=== PATIENT | male | born 1995 | race Caucasian/White ===

== ENCOUNTER 2020-02-23 18:14 | Day surgery (SDC) | payer BC ==
[~2020-02-23 18:14] MED LIST: Dexamethasone 20 MG/5 ML VIAL ONE; Iopamidol-370 76% 500 ML 1 ML ONE; Lidocaine 1% PF 5 ML VIAL ONE; Ondansetron PF 4 MG/2 ML Vial ONE; PROPOFOL 200 MG/20 ML VIAL ONE; Rocuronium Bromide 10 MG/ML (10ML VIAL) ONE; Succinylcholine Chloride 20 MG/ML 10 ml SYRINGE FS ONE
[2020-02-23] MEDS ORDERED: Adacel (T-DAP) 0.5 ML SYRINGE ONE (18:19)
[2020-02-23] MEDS ORDERED: Fentanyl 100 MCG/2 ML VIAL ONE ×3 (18:19→21:11)
[2020-02-23 18:37] LABS: #Basophils 0.1 thou/uL (0.0-0.2); #Eosinphils 0.1 thou/uL (0.0-0.7); #Lymphocytes 2.9 thou/uL (1.20-3.40); #Monocytes 0.7 thou/uL (0.11-0.59); #Neutrophils 2.8 thou/uL (1.40-6.50); %Basophils 1.5 % (0.0-1.0); %Eosinophils 2.2 % (0.0-10.0); %Lymphocytes 43.8 % (21.0-51.0); %Monocytes 10.5 % (0.0-10.0); %Neutrophils 42.1 % (42.0-75.0); Mean Corpuscular HGB CONC 33.8 g/dL (32.0-36.0); Mean Corpuscular Hemoglobin 33.6 pg (27.0-31.0); Mean Corpuscular Volume 99.6 fL (78.0-98.0); Mean Platelet Volume 7.6 fL (7.4-10.4); Platelet Count 273 thou/uL (130-400); RBC Distribution Width 11.2 % (11.5-14.5); Red Blood Cell (RBC) Count 4.75 mill/uL (4.70-6.10); White Blood Cell (WBC) Count 6.7 thou/uL (4.8-10.8)
[2020-02-23] MEDS ORDERED: Lidocaine 1% w/Epinephrine 1:100K 20 ML VIAL ONE (18:38)
[2020-02-23] MEDS ORDERED: Bacitracin 1 PK ONE (18:51)
[2020-02-23 18:59] LABS: ALT (SGPT) 18 U/L (8-55); AST (SGOT) 18 U/L (5-34); Albumin 4.7 g/dL (3.5-5.0); Alkaline Phosphatase 52 U/L (40-110); Anion Gap 16 mmol/L (10-20); BUN (Urea Nitrogen) 9 mg/dL (8.9-20.6); Bilirubin, Total 0.8 mg/dL (0.2-1.2); Calc. Creatinine Clearance 0 mL/min (70-130); Calcium 9.1 mg/dL (7.8-10.44); Carbon Dioxide 22 mmol/L (22-29); Chloride 100 mmol/L (98-107); Estimated GFR-MDRD 89; Globulin 2.5 g/dL (2.4-3.5); Glucose 133 mg/dL (70-105); Potassium 3.4 mmol/L (3.5-5.1); Protein, Total 7.2 g/dL (6.0-8.3); Sodium 135 mmol/L (136-145)
[2020-02-23] MEDS ORDERED: Morphine 4 MG/ML VIAL ONE (20:27)
--- NOTE | 2020-02-23 21:02 | CT ---
CT ANGIOGRAM RIGHT LOWER EXTREMITY: 02/23/20 HISTORY: Evaluate lower extremity vasculature. COMPARISON: CTA same day. FINDINGS/IMPRESSION: There continues to be minimal contrast after the mid trifurcation 8 cm distal to the knee joint. No s ignificant vascular flow at the ankle. Given there is a relatively long segment of transition from co ntrast to no contrast, this is likely due to vasospasm. There is size increased right vastus lateralis and vastus intermedius hemorrhage. There is active con trast extravasation within the vastus intermedius muscle from an intramuscular vessel. This active co ntrast extravasation was not seen on the recent CT exam. This is best seen on axial image 16. The pat ient appears to be losing some of the intermuscular fat plane within the vastus lateralis and interme dius muscles. The patient is at risk for developing compartment syndrome. There is also increasing h emorrhage along the superficial fascia of the vastus lateralis. Code: ESTELLA Davis notified of the findings via telephone at 8:20 p.m. POS: HOME
[2020-02-23] MEDS ORDERED: Dextrose 5% in Water 1,000 ML IV PRN (21:13)
[2020-02-23] MEDS ORDERED: Ondansetron ODT 4 MG TAB PO PRN (21:13)
[2020-02-23] MEDS ORDERED: Dextrose 50% Abboject 50 ML SYRINGE SLOW IVP PRN (21:13)
[2020-02-23] MEDS ORDERED: Sodium Chloride 0.9% 1,000 ML IV SCH (21:15)
[2020-02-23] MEDS ORDERED: Acetaminophen 500 MG TAB PO PRN (21:16)
[2020-02-23] MEDS ORDERED: traMADol HCl 50 MG TAB PO PRN ×2 (21:16)
[2020-02-23] MEDS ORDERED: ALPRAZolam 0.5 MG TAB PO PRN (21:16)
--- NOTE | 2020-02-23 21:23 | CT ---
CT ANGIOGRAM ABDOMEN WITH CONTRAST: CT ANGIOGRAM PELVIS WITH CONTRAST: CT ANGIOGRAM RUNOFF TO THE FEET: 02/23/20 HISTORY: Puncture to the right thigh with a pocket knife. FINDINGS: Lung bases are clear. No pericardial effusion. Within the abdomen, the liver, spleen, gallbladder, pancreas, adrenal glands, and kidneys are all nor mal. No dilated loops of large or small bowel. The aortic contour is normal. The celiac trunk, superior mesenteric artery and inferior mesenteric ar teries are all patent. Lumbar spine is unremarkable. There appears to be an anterior right thigh laceration with hematoma within the vastus lateralis musc le with small volume intramuscular gas. There is active contrast extravasation. There is small volume hemorrhage tracking along the deep portion of the muscle involving the vastus intermedius. The common femoral artery, femoral artery, deep femoral artery, popliteal artery, are all patent. Min imal flow in the trifurcation. This is likely sequela of underlying tourniquet. There is adequate flow to the left foot. IMPRESSION: 1. Anterior laceration extending from the skin to the vastus lateralis and vastus intermedius mu scles with small volume hemorrhage along the vastus lateralis muscle. No active contrast extravasatio n. 2. No significant flow within the mid trifurcation to the distal trifurcation on the right with some faint hypodensity in the distal popliteal artery. According to the emergency room physician, the re was no tourniquet on at the time of the CT examination. This could be sequela of vasospasm and les s likely thrombosis. A repeat examination may be beneficial. Intraluminal thrombus is felt somewhat l ess likely. Code: CR - Emergency Room physician notified of the findings via telephone at 7:32 p.m. POS: HOME
[2020-02-23] MEDS ORDERED: Lorazepam 2 MG/ML VIAL ONE (21:27)
--- NOTE | 2020-02-23 22:23 | HP ---
HISTORY OF PRESENT ILLNESS: Mr. Maloney is a 24-year-old man, who was opening a box earlier this evening when he accidentally stabbed his right thigh with a 4-inch pocket knife. He recalled the blade went pretty deep. He lost a fair amount of blood at the scene. He was brought to the emergency department, evaluated by the emergency medicine physician. The wound was explored locally and closed with pressure dressing in place. The patient continued with expanding hematoma. A CT angiography of the leg was performed, which did not reveal any major vascular injury except for a contrast extravasation within the muscle with expanding hematoma as noted on two interval CT angiographies. At the time of my evaluation, patient reports 8/10 pain in the right leg. He is able to move all extremities. [place] Coma Scale is 15. PAST MEDICAL HISTORY: Pertinent for chronic anxiety disorder. PAST SURGICAL HISTORY: The patient denies any previous surgeries. SOCIAL HISTORY: He is a track and field coach by profession. His girlfriend is with him in the emergency department. He denies any cigarette smoking, ethanol, or illicit drug abuse. FAMILY HISTORY: He denies any family history of diabetes mellitus, hypertension, heart disease, or cancer. CURRENT MEDICATIONS: Alprazolam 0.5 mg p.o. t.i.d. ALLERGIES: THE PATIENT DENIES ANY KNOWN DRUG ALLERGIES. REVIEW OF SYSTEMS: Ten-point review of systems is essentially unremarkable except as stated in past medical history and chief complaint. PHYSICAL EXAMINATION: GENERAL: This reveals a 24-year-old normally-developed man, who is otherwise coherent and interactive, appears as stated age. The patient is alert and oriented x3, appears to be in no significant acute distress at the time of my evaluation. VITAL SIGNS: Include blood pressure 135/75, pulse 74, respiratory rate is 24, oxygen saturation is 100% on room air. HEENT: Reveals normocephalic and atraumatic. The pupils are equal, round, and reactive to light and accommodation. Extraocular muscles are intact bilaterally. No scleral icterus is present. Oral mucosa is pink and moist. No lesions are noted. HEART: Reveals regular rate and rhythm. No murmurs or gallops auscultated. LUNGS: Clear to auscultation bilaterally. Breathing, regular and nonlabored. ABDOMEN: Soft, nontender, nondistended. EXTREMITIES: Reveal 2+ radial and pedal pulses bilaterally. No ankle edema is present. There is a 3 cm laceration in the lateral aspect of the distal right thigh, approximately 5 cm above the knee. There is expanding hematoma, which measures 20.5 inches circumferentially in the greatest dimension. This is in contrast to 17 inches in the contralateral extremity. Mostly noted that the dorsalis pedis and posterior tibial pulses are quite palpable in both extremities. POLI is 1 in the involved extremity. IMPRESSION: 1. A 3 cm self-inflicted stab wound to distal right thigh. 2. Expanding hematoma with intramuscular hemorrhage of the involved extremity. PLAN: The patient will be taken to the operating room for debridement and irrigation and hemorrhage control. He will be placed on observation overnight and discharged home in the morning. Above findings and plan has been discussed with the patient, who indicates understanding the information given. I have answered his questions. The patient has granted consent for this admission and surgical intervention. Job ID: [id number]
[2020-02-23] MEDS ORDERED: Meperidine HCl/PF 25 MG/ML VIAL SLOW IVP PRN (22:50)
[2020-02-23] MEDS ORDERED: Promethazine HCl 25 MG/ML VIAL IM PRN (22:50)
[2020-02-23] MEDS ORDERED: Promethazine HCl 25 MG/ML VIAL SLOW IVP PRN (22:50)
[2020-02-23] MEDS ORDERED: Ondansetron HCl/PF 4 MG/2 ML Vial IVP PRN (22:50)
[2020-02-24] MEDS ORDERED: CEFAZOLIN 2 GM in Premix Bag 1 BAG IVPB SCH (02:00)
--- NOTE | 2020-02-24 04:03 | OP ---
DATE OF PROCEDURE: 02/23/2020 PREOPERATIVE DIAGNOSES: 1. Accidental self-inflicted stab wound, distal lateral right thigh. 2. Intramuscular hemorrhage with expanding hematoma. POSTOPERATIVE DIAGNOSES: 1. Accidental self-inflicted stab wound, distal lateral right thigh. 2. Intramuscular hemorrhage with expanding hematoma. OPERATION PERFORMED: Wound exploration, debridement and irrigation, and control of hemorrhage. ESTIMATED BLOOD LOSS: 100 mL. COUNTS: Sponge and instrument counts were verified as correct x2. COMPLICATIONS: None apparent at the time of operation. INDICATIONS FOR OPERATION: This is a 24-year-old man who suffered accidental self-inflicted stab wound to the distal right thigh at home. This was caused by a pocket knife. He lost a fair amount of blood at the scene and in the emergency department. Attempts to control the bleeding in the emergency department were unsuccessful as there was active extravasation of contrast and expanding hematoma on clinical examination. The patient was brought to the operating room for exploration. Findings were consistent with a deep laceration through the fascia, extending through the rectus femoris and adductor muscles to a distance of approximately 7 cm. No pulsatile bleed; however, large amount of clot was present and evacuated from the wound itself. DESCRIPTION OF PROCEDURE: Informed consent was obtained from the patient who was brought to the operating room and placed in supine position. Following general anesthesia, the right lower extremity was sterilely prepped and draped in usual fashion. A tourniquet was placed high up in the right groin, but never inflated. The previous sutures from emergency department were excised, and large amount of clot was evacuated under pressure. The wound was explored, finding a deep laceration through several layers of muscle almost down to the bone to a distance of approximately 7 cm. The wound cavity was copiously irrigated with saline. No pulsatile bleed was present; however, there was constant oozing of bright red blood. We then sprayed some Arixtra in the deep aspect of the wound. [place] were used to close the skin, and a pressure dressings were applied using 4x4 and Gus wrap. Following completion of the procedure, POLI was noted at over 1. Dorsalis pedis and posterior tibial pulses were palpated and full. The patient tolerated the operation without any apparent complication and was returned to recovery room in satisfactory condition. Job ID: [id number]
== END 2020-02-24 00:40 | disposition home or self-care (01) ==
LOC: ERS 18:14 → SDC/OP 21:36
PROVIDERS: ATTEND Surgery
PROC: 0JJW0ZZ Inspection of Lower Extremity Subcutaneous Tissue and Fascia, Open Approach (ICD-10-PCS; principal; 2020-02-23)
DX: S76.2 Injury of adductor muscle, fascia and tendon of thigh (principal); S76.121A Laceration of right quadriceps muscle, fascia and tendon, initial encounter; S71.111A Laceration without foreign body, right thigh, initial encounter; F41.9 Anxiety disorder, unspecified; Z79.899 Other long term (current) drug therapy; W26.0XXA Contact with knife, initial encounter
CPT/HCPCS: 75635; 80053; 85025; 86850; 86900; 86901; 90715; J0690; J1100; J2001; J2060; J2270; J2405; J2704; J3010; Q9967

== ENCOUNTER 2022-07-09 08:28 | Outpatient (CLI) | payer OTHER | END 2022-07-09 08:29 | disposition home or self-care (01) | LOC: BICULT 08:28 | PROVIDERS: ATTEND Internal Medicine | DX: R10.84 Generalized abdominal pain (principal) | CPT/HCPCS: 76700 ==